=== PATIENT | female | born 1935 | race Caucasian/White ===

== ENCOUNTER 2017-01-19 22:04 | Emergency (ER) | payer OTHER ==
[~2017-01-19] VITALS: Ht 158.8 cm; Wt 89.8 kg
[~2017-01-19 22:04] MED LIST: ALPRAZOLAM0.5 MG PO; AMLODIPINE BESY10 MG PO; ANTIVERT 25 MG25 MG PO; CRESTOR 5MG5 MG PO; FLAX OIL1000 MG PO; MULTIVITAMIN1 SGL PO; RENAL CAPS1 SGL PO
--- NOTE | 2017-01-19 22:16 | ED AMS/SEIZURE/WEAK/DIZZY ---
History of Present Illness General Chief Complaint: Dizziness Stated Complaint: PT IS VERY DIZZY Source: patient Exam Limitations: no limitations Vital Signs & Intake/Output Vital Signs & Intake/Output Vital Signs Date Time Temp Pulse Resp B/P B/P Pulse O2 O2 Flow FiO2 Mean Ox Delivery Rate 01/20 0225 69 18 168/82 99 Room Air 01/20 0102 170/90 01/20 0100 Room Air 01/20 0048 96.3 67 20 214/102 99 Room Air 01/19 2226 98.1 71 20 181/71 96 Room Air ED Intake and Output 01/20 0000 01/19 1200 Intake Total Output Total Balance Patient 198 lb Weight Weight Reported by Patient Measurement Method Allergies Coded Allergies: No Known Allergies (01/19/17) Reconcile Medications Alprazolam 0.25 MG TABLET 1 TAB PO DAILY ANXIETY (Reported) Amlodipine Besylate 10 MG TABLET 10 MG PO DAILY BP (Reported) B COMPLEX & C NO.20/FOLIC ACID (Renal Caps Softgel) 1 MG CAPSULE 1 CAP PO DAILY SUPPLEMENT (Reported) Flaxseed Oil (Flax Oil) 1,000 MG SGL 1 CAP PO DAILY SUPPLEMENT (Reported) Meclizine (Meclizine HCl) 25 MG TAB 1 TAB PO TID PRN DIZZINESS MULTIVITAMIN (Multivitamins) 1 EACH CAPSULE 1 CAP PO DAILY SUPPLEMENT ( Reported) Rosuvastatin Calcium (Crestor) 5 MG TABLET 1 TAB PO AT BEDTIME CHLOESTEROL ( Reported) Triage Nurses Notes Reviewed? yes Onset: Gradual Duration: day(s):, waxing and waning Timing: recent history Injury Environment: home Severity: moderate Modifying Factors: Improves With: rest. Associated Symptoms: head ache HPI: 81 yo woman h/o hypertension presents with dizziness, lightheadedness, and "I'm just so tired all over," for the entire day. She notes that she has a headache. She notes that her dizziness is not positional. She has no fever, chills, chest pain, shortness of breath. She is otherwise well. Past History Travel History Traveled to [place] past 21 day No Medical History Any Pertinent Medical History? see below for history Neurological: NONE EENT: NONE Cardiovascular: hypertension Respiratory: NONE Gastrointestinal: NONE Hepatic: NONE Renal: NONE Musculoskeletal: NONE Psychiatric: NONE Endocrine: NONE Blood Disorders: NONE Cancer(s): NONE RADIOLOGY DIRECTOR/Reproductive: NONE Surgical History Surgical History: non-contributory Psychosocial History What is your primary language [place] Family History Hx Contributory? No Review of Systems Review of Systems Constitutional: Reports: no symptoms. EENTM: Reports: no symptoms. Respiratory: Reports: no symptoms. Cardiovascular: Reports: no symptoms. GI: Reports: no symptoms. Genitourinary: Reports: no symptoms. Musculoskeletal: Reports: no symptoms. Skin: Reports: no symptoms. Neurological/Psychological: Reports: no symptoms. Hematologic/Endocrine: Reports: no symptoms. Immunologic/Allergic: Reports: no symptoms. All Other Systems: Reviewed and Negative Physical Exam Physical Exam General Appearance: well developed/nourished, mild distress Head: atraumatic, normal appearance Eyes: Bilateral: normal appearance, PERRL, EOMI. Ears, Nose, Throat: normal pharynx, normal ENT inspection Neck: normal inspection, supple, full range of motion Respiratory: normal breath sounds, chest non-tender, no respiratory distress, quiet respiration, lungs clear Cardiovascular: regular rate/rhythm Gastrointestinal: normal bowel sounds, soft, non-tender, no organomegaly Back: normal inspection, normal range of motion Extremities: normal range of motion Neurologic/Psych: no motor/sensory deficits, awake, alert, oriented x 3 Reflexes: 1+: bicep (R), bicep (L), knee (R), knee (L). Skin: intact, normal color, warm/dry Core Measures ACS in differential dx? No CVA/TIA Diagnosis: No Severe Sepsis Present: No Septic Shock Present: No Progress Differential Diagnosis: veritigo, dizziness NOS, dehydration, vs other. Plan of Care: Orders Procedure Date/time Status Add-on Test (ER Only) 01/20 0119 Active TROPONIN LEVEL 01/19 2226 Complete URINALYSIS 01/20 2208 Complete LIPASE 01/20 2208 Complete HEPATIC FUNCTION PANEL 01/20 2208 Complete CBC WITHOUT DIFFERENTIAL 01/20 2208 Complete BASIC METABOLIC PANEL 01/20 2208 Complete AMYLASE 01/20 2208 Complete EKG 01/19 2205 Active Laboratory Tests 01/20/17 0145: Urinalysis LIGHT H, Urine Color YEL, Urine Clarity CLEAR, Urine pH 6.0, Ur Specific Spencer 1.015, Urine Protein TRACE H, Urine Ketones 15 H, Urine Nitrite NEG, Urine Bilirubin NEG, Urine Urobilinogen 0.2, Ur Leukocyte Esterase SMALL H, Ur Microscopic SEDIMENT EXAMINED, Urine RBC 1-3, Urine WBC 5-10 H, Ur Epithelial Cells MOD H, Urine Bacteria FEW H, Urine Mucus FEW, Urine Hemoglobin TRACE-LYSED, Urine Glucose NEG 01/19/17 2226: Anion Gap 12, Estimated GFR > 60, BUN/Creatinine Ratio 18.9, Glucose 96, Calcium 9.7, Total Bilirubin 1.0, Direct Bilirubin 0.2, AST 31, ALT 38, Alkaline Phosphatase 71, Troponin I < 0.01, Total Protein 7.5, Albumin 4.5, Amylase 80, Lipase 62, CBC w Diff NO MAN DIFF REQ, RBC 4.17 L, MCV 93.9, MCH 31.3 H, RDW 13.7, MPV 10.2, Gran % 62.5, Lymphocytes % 28.6, Monocytes % 8.3, Eosinophils % 0.3, Basophils % 0.3, Absolute Granulocytes 4.7, Absolute Lymphocytes 2.1, Absolute Monocytes 0.6, Absolute Eosinophils 0, Absolute Basophils 0, PUBS MCHC 33.3 Diagnostic Imaging: Viewed by Me: CT Scan. Discussed w/RAD: CT Scan. Radiology Impression: head ct... no acute change... full report below. CXR Impression: no acute abnormality, no infiltrates, normal size heart, normal mediastinum Initial ED EKG: normal axis, normal intervals, normal p-waves, normal QRS complex, normal sinus rhythm Comments: PATIENT: SHIRA JIN PRESENT AGE: 81 PATIENT ACCOUNT NO: [id number] : 35 LOCATION: [facility] ORDERING PHYSICIAN: FABIANA GLEASON MD SERVICE DATE: 01/19/17 EXAM TYPE: RAD - XRY-PORTABLE CHEST XRAY EXAMINATION: XR PORTABLE CHEST CLINICAL INFORMATION: Presyncope COMPARISON: 03/28/2015 TECHNIQUE: Portable frontal view of the chest was obtained. FINDINGS: The lungs are clear with no focal consolidation. No evidence of pneumothorax, pulmonary edema, or pleural effusions. The cardiomediastinal silhouette is unremarkable. No acute osseous findings. IMPRESSION: No acute cardiopulmonary findings. DICTATED BY: CEDRIC CRAWFORD MD DATE/TIME DICTATED:01/20/1739 HEALTH SOCIAL WORK PROFESSOR:TIFFANY DATE/TIME TRANSCRIBED:01/20/1739 CONFIDENTIAL, DO NOT COPY WITHOUT APPROPRIATE AUTHORIZATION. <Electronically signed in Other Vendor System> SIGNED BY: CEDRIC CRAWFORD MD 01/20/17 0044 PATIENT: SHIRA JIN PRESENT AGE: 81 PATIENT ACCOUNT NO: [id number] : 35 LOCATION: [facility] ORDERING PHYSICIAN: FABIANA GLEASON MD SERVICE DATE: 01/19/17 EXAM TYPE: CAT - CT HEAD WO IV CONTRAST EXAMINATION: CT HEAD WITHOUT CONTRAST CLINICAL INFORMATION: No major change from previous exam 03/28/2015. COMPARISON: CT brain 03/28/2015 TECHNIQUE: Contiguous axial imaging was performed from the skull base to vertex without intravenous administration of contrast. DLP: 619 mGy-cm FINDINGS: There is no evidence of acute intracranial hemorrhage or territorial infarction. No abnormal mass effect or midline shift is seen. Andrews to white matter differentiation is well preserved. No extra-axial fluid collections are identified. There is diffuse periventricular hypodensity suggestive of chronic small vessel ischemic changes. The lateral ventricles are enlarged with mild prominence of cortical sulci. The osseous structures and soft tissues are normal. The mastoid air cells and visualized portions of the paranasal sinuses are well aerated. IMPRESSION: No acute intracranial process seen. Age-related mild cerebral volume loss. Chronic small vessel ischemic changes in both cerebral hemispheres. DICTATED BY: JONAH JOYCE MD DATE/TIME DICTATED:01/19/172254 HEALTH SOCIAL WORK PROFESSOR:TIFFANY DATE/TIME TRANSCRIBED:01/19/172254 CONFIDENTIAL, DO NOT COPY WITHOUT APPROPRIATE AUTHORIZATION. <Electronically signed in Other Vendor System> SIGNED BY: JONAH JOYCE MD 01/19/17 2302 Departure Departure Disposition: HOME OR SELF CARE Condition: Stable Clinical Impression Primary Impression: Dizziness Referrals: ISAIAS MCCRAY MD (PCP/Family) Departure Forms: Customer Survey General Discharge Information Comments 01/20/17, 2:27am... pt feeling well. labs benign. she would like to go home. i encouraged her to follow up with her pmd in the AM or return if her symptoms recur.
[2017-01-19 22:45] LABS: ABSOLUTE BASOPHIL COUNT 0 /CUMM (0.0-0.2); ABSOLUTE EOSINOPHIL COUNT 0 /CUMM (0.0-0.7); ABSOLUTE GRANULOCYTE CT 4.7 /CUMM (1.4-6.5); ABSOLUTE LYMPH COUNT 2.1 /CUMM (1.2-3.4); ABSOLUTE MONOCYTE COUNT 0.6 /CUMM (0.10-0.60); BASOPHIL % 0.3 % (0.0-2.0); EOSINOPHIL % 0.3 % (0-5); GRANULOCYTE % 62.5 % (42.2-75.2); HEMATOCRIT 39.2 % (37-47); MEAN CORPUSCULAR HGB 31.3 PG (27.0-31.0); MEAN CORPUSCULAR HGB CONC 33.3 G/DL (33.0-37.0); MEAN CORPUSCULAR VOLUME 93.9 FL (81.0-99.0); MEAN PLATELET VOLUME 10.2 FL (7.4-10.4); PLATELET COUNT 175 /CUMM (130-400); RBC DISTRIBUTION WIDTH 13.7 % (11.5-14.5); RED BLOOD CELL CT 4.17 /CUMM (4.20-5.40); WHITE BLOOD CELL COUNT 7.5 /CUMM (4.8-10.8)
--- NOTE | 2017-01-19 23:02 | CT SCAN REPORT ---
EXAMINATION: CT HEAD WITHOUT CONTRAST CLINICAL INFORMATION: No major change from previous exam 03/28/2015. COMPARISON: CT brain 03/28/2015 TECHNIQUE: Contiguous axial imaging was performed from the skull base to vertex without intravenous administration of contrast. DLP: 619 mGy-cm FINDINGS: There is no evidence of acute intracranial hemorrhage or territorial infarction. No abnormal mass effect or midline shift is seen. Andrews to white matter differentiation is well preserved. No extra-axial fluid collections are identified. There is diffuse periventricular hypodensity suggestive of chronic small vessel ischemic changes. The lateral ventricles are enlarged with mild prominence of cortical sulci. The osseous structures and soft tissues are normal. The mastoid air cells and visualized portions of the paranasal sinuses are well aerated. IMPRESSION: No acute intracranial process seen. Age-related mild cerebral volume loss. Chronic small vessel ischemic changes in both cerebral hemispheres.
--- NOTE | 2017-01-20 00:44 | RADIOLOGY REPORT ---
EXAMINATION: XR PORTABLE CHEST CLINICAL INFORMATION: Presyncope COMPARISON: 03/28/2015 TECHNIQUE: Portable frontal view of the chest was obtained. FINDINGS: The lungs are clear with no focal consolidation. No evidence of pneumothorax, pulmonary edema, or pleural effusions. The cardiomediastinal silhouette is unremarkable. No acute osseous findings. IMPRESSION: No acute cardiopulmonary findings.
[2017-01-20 02:25] VITALS: BP 168/82
== END 2017-01-20 02:35 ==
LOC: ERH 22:04
PROVIDERS: Pediatrics
DX: R42 Dizziness and giddiness (principal)
CPT/HCPCS: 81001; 93005; 93010